=== PATIENT | female | born 1955 | race Caucasian/White ===

== ENCOUNTER 2021-01-30 08:07 | Emergency (ER) | payer BC, SELFPAY ==
--- NOTE | ~2021-01-30 | XR_ITS ---
XR chest 2V DATE: 01/30/2021 08:46 INDICATION: Productive cough, difficulty breathing. Smoker. TECHNIQUE: 2 views COMPARISON: None FINDINGS: Normal heart size. No hilar or mediastinal enlargement. No pulmonary infiltrate or consolid ation, pleural effusion or pulmonary vascular congestion or pneumothorax. Diffuse osteopenia. IMPRESSION: No active cardiopulmonary disease Reviewed, dictated and finalized at location A.
[2021-01-30 08:16] VITALS: BP 144/91; PULSE 95; RESP 16; TEMP 36.6; O2SAT 92
--- NOTE | 2021-01-30 08:44 | ED.GENADULT ---
HPI - General Adult General Chief complaint: Upper Respiratory Infection Stated complaint: congestion Source: patient Mode of arrival: ambulatory Limitations: no limitations History of Present Illness HPI narrative: Patient is a 65-year-old female who presents to the [facility] via POV for evaluation of URI 3 that began 3 days ago. Additionally, she reports bilateral ear pain, nasal congestion, rhinorrhea, semiproductive cough, shortness of breath, and wheezing. She reports her cough is painful. She reports her sputum production is small in quantity and light yellow in color. No relief with Sudafed. Mucinex provides moderate relief although she became concerned after taking an entire box over the course of 3 days prompting today's visit. Activity worsens shortness of breath. Spouse had URI symptoms for 24 hours. She reports she was in the hospital this past week taking care of her spouse who had a knee replacement. She is fully vaccinated against Covid. Related Data Home Medications Medication Instructions Recorded Confirmed clobetasol 0.05 % topical ointment See Rx Instructions .ROUTE .COMPLEX 09/10/20 fluticasone propionate 50 2 spray INTRANASAL DAILY 09/10/20 mcg/actuation nasal spray,suspension triamcinolone acetonide 0.1 % See Rx Instructions .ROUTE .COMPLEX 09/10/20 topical cream Allergies Allergy/AdvReac Type Severity Reaction Status Date / Time BANDAIDS-NOT TAPE Allergy Mild Rash Uncoded 01/30/21 08:34 Review of Systems Review of Systems: Denies history of COPD, bronchitis, asthma, and pneumonia. Denies current/past tobacco use. Pertinent negatives: fever, sweats, chills, change in appetite, fatigue, skin color changes, headache, dizziness, lymphadenopathy, sinus problems, ear drainage, tinnitus, vertigo, chest pain, heart murmurs, heart palpitations, cyanosis, hemoptysis, hoarseness, orthopnea, pleuritic pain, nausea, vomiting, diarrhea, and myalgias. [facility] Past Medical History Medical History Bone spur of foot (~05/2019) Chicken pox HLD (hyperlipidemia) Mumps Rheumatic fever Family History Family History Father , 80 Heart problem Mother No problems noted. Social History Social History Social History: Patient drinks 4 cups of caffeine daily. Smoking packs per day: 0.5 Smoking cigarettes per day: 10.0 Years smoked: 15 Smoking pack-years: 7.50 Smoking status: Current some day smoker Tobacco type: cigarettes Alcohol intake: current Alcohol use details: Patient drinks socially. 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 There is no relevant family history pertinent to the presenting complaint. Exam Narrative: GENERAL: Well-appearing, well-nourished, and in no acute distress. HEAD: Normocephalic, atraumatic. No sinus tenderness or facial swelling appreciated. EYES: PERRLA and EOMI. No evidence of erythema, swelling, or drainage. ENT: Bilateral external ears and ear canals normal. Bilateral TMs are normal.No TM perforation. Nares clear, no rhinorrhea or epistaxis. Bilateral turbinates without erythema/ swelling. Mucous membranes moist and pink. Uvula is midline without erythema and swelling. No evidence of petechial rash, cobblestoning, lesions, ulcers, erythema, swelling, exudates, peritonsillar abscess, tenting, or drooling. Breath odor and voice normal. NECK: Supple. No Lymphadenopathy or nuchal rigidity appreciated. CHEST: Bilateral posterior upper lung damian are diminished. Mild inspiratory wheeze noted to right posterior upper lung field. [place]
[2021-01-30] MEDS: IPRATROPIUM BR 0.02% INH SOLN 0.5 MG/2.5 ML VIAL INHALATION (09:03)
[2021-01-30] MEDS: ALBUTEROL SULFATE NEB 2.5 MG/3 ML INH INHALATION (09:03)
== END 2021-01-30 09:30 | disposition home or self-care (01) ==
PROVIDERS: Emergency Provider Nurse Practitioner Family; PCP Emergency Medicine
DX: J40 Bronchitis, not specified as acute or chronic (principal); F17.210 Nicotine dependence, cigarettes, uncomplicated; E78.5 Hyperlipidemia, unspecified
CPT/HCPCS: 71046; 94640; 99213; G0463

== ENCOUNTER → 2021-02-01 02:54 | Outpatient (CLI) | payer SELFPAY ==
[2021-02-01 16:22] LABS: SARS-CoV-2 RNA PCR Negative
== END ==
PROVIDERS: PCP Emergency Medicine; Visit Provider Emergency Medicine
DX: Z20.822 Contact with and (suspected) exposure to COVID-19 (principal); R05.9 Cough, unspecified; R09.81 Nasal congestion; R09.89 Other specified symptoms and signs involving the circulatory and respiratory systems
CPT/HCPCS: C9803; U0003; U0005

== ENCOUNTER → 2021-02-16 15:58 | Outpatient (CLI) | payer BC, SELFPAY ==
--- NOTE | ~2021-02-16 | XR_ITS ---
EXAMINATION: XR lumbar spine 2-3V DATE: 02/16/2021 16:15 INDICATION: Lumbar radiculopathy. TECHNIQUE: 3 views of lumbar spine were obtained. COMPARISON: CT abdomen and pelvis 11/27/2015 FINDINGS: There is 4 degrees dextrocurvature of lumbar spine. There are chronic bilateral L5 pars def ects. There is 6 mm anterolisthesis of L5 on S1. There is mild chronic height loss of L5 vertebral matty dy posteriorly. There is moderately decreased disc height at L5-S1. There is multilevel mild facet jaylene int osteoarthritis. IMPRESSION: 1. Chronic bilateral L5 pars defects with grade 1 anterolisthesis of L5 on S1. 2. Moderate lower lumbar spondylosis. Reviewed, dictated and finalized at location A.
== END ==
PROVIDERS: PCP Emergency Medicine; Visit Provider Emergency Medicine
DX: M47.27 Other spondylosis with radiculopathy, lumbosacral region (principal)
CPT/HCPCS: 72100

== ENCOUNTER → 2021-05-19 12:00 | Outpatient (CLI) | payer BC, SELFPAY ==
--- NOTE | ~2021-05-19 | DEXA_ITS ---
Bone Density Report Name: TABITHA LOOMIS Age: 65 Sex: Female Ethnicity: White Date of : 1955 Indication: postmenopausal; screening for osteoporosis; Referring Provider: MAGALY ACEVES Study: Bone densitometry was performed. Exam Date: May 19, 2021 Accession number: [id number] Bone Density: Region BMD T-score Z-score Classification AP Spine (L1-L4) 0.752 -2.7 -1.0 Osteoporosis Femoral Neck (Left) 0.685 -1.5 0.0 Osteopenia Total Hip (Left) 0.811 -1.1 0.1 Osteopenia Femoral Neck (Right) 0.691 -1.4 0.0 Osteopenia Total Hip (Right) 0.825 -1.0 0.2 Normal Total Hip Mean 0.818 -1.1 0.2 Osteopenia World Health Organization criteria for BMD impression classify patients as: Normal (T-score at or above -1.0), Osteopenia (T-score between -1.0 and -2.5), or Osteoporosis (T-score at or below -2.5). 10-year Fracture Risk: FRAX not reported because: Some T-score for Spine Total or Hip Total or Femoral Neck at or below -2.5 Clinical Information Provided by Patient: Smokes Patient maximum height was 66 Menopause Age: 52 Drinks caffeinated beverages Onset of menses at age 15 Number of children 2 Impression: The patient has osteoporosis, based on the Total Spine T-score. The patient has risk factors, including: smoking. Discussion: INCREASED RISK OF FRACTURE. BONE DENSITY IS UNDESIRABLY LOW AT ONE OR MORE SKELETAL SITES, CONSISTENT WITH POSTMENOPAUSAL OSTEOPOROSIS. This patient's lowest T-score meets the World Health Organization's (WHO) criteria for osteoporosis at one or more sites (T-score -2.5 or below). In untreated patients, the risk of osteoporotic fracture increases approximately two-fold for each 1.0 SD decrease in T-score. Low bone density is not the only risk factor for fracture; also consider factors such as patient's age, frailty or poor health, risk of falling, risk of injury, previous osteoporotic fracture, family history of osteoporosis, cigarette smoking, low body weight, etc. Not everyone with low bone mineral density has osteoporosis; osteomalacia and other metabolic bone disorders should also be considered. Patients who have osteoporosis should be evaluated for specific diseases and conditions (secondary causes) that may cause or contribute to bone loss. The [place] Association of Clinical Endocrinologists (AACE) and National Osteoporosis Foundation (NOF) recommend pharmacologic intervention for all postmenopausal women whose T-score is in this range. The patient should follow a healthful lifestyle (good nutrition with adequate calcium and vitamin D, and appropriate weight-bearing exercise). Follow-Up: Consider a repeat BMD and Vertebral Fracture Assessment (VFA) exam in 2 years or sooner if medically necessary, to reassess this patient's status. Reported by: [facility] on 05/19/2021 12
--- NOTE | ~2021-05-19 | MM_ITS ---
EXAMINATION: MM screening sadiq BI w phil HISTORY: Screening mammogram, family history of breast cancer in her mother. TECHNIQUE: Craniocaudal and mediolateral oblique 3-D tomosynthesis images were obtained and synthetic 2-D images were generated. CAD analysis was submitted and interpreted. COMPARISON: 04/05/2019, 11/25/2018, 09/03/2007, 02/25/2007 BREAST PARENCHYMAL COMPOSITION: There are scattered areas of fibroglandular density. FINDINGS: Stable masses of the breasts are consistent with benign findings. There is no evidence of s uspicious mass, calcification, or architectural distortion to suggest malignancy in either breast. Th ere has been no suspicious interval change. IMPRESSION: 1. No mammographic evidence of malignancy. 2. Recommend routine screening mammography in one year. BI-RADS Category 2: Benign finding(s). Reviewed, dictated and finalized at location A. ER HIDES
== END ==
PROVIDERS: Visit Provider Emergency Medicine
DX: Z12.31 Encounter for screening mammogram for malignant neoplasm of breast (principal); Z78.0 Asymptomatic menopausal state; M81.0 Age-related osteoporosis without current pathological fracture; M85.89 Other specified disorders of bone density and structure, multiple sites
CPT/HCPCS: 77063; 77067; 77080

== ENCOUNTER → 2022-10-11 15:52 | Outpatient (CLI) | payer BC, SELFPAY ==
--- NOTE | ~2022-10-11 | MM_ITS ---
EXAMINATION: MM screening sadiq BI w phil HISTORY: Screening mammogram TECHNIQUE: Craniocaudal and mediolateral oblique 3-D tomosynthesis images were obtained and synthetic 2-D images were generated. CAD analysis was submitted and interpreted. COMPARISON: 05/19/2021 bilateral screening mammogram BREAST PARENCHYMAL COMPOSITION: The breasts are heterogeneously dense, which may obscure small masses . FINDINGS: Scattered bilateral benign calcifications. There is no evidence of suspicious mass, calcifi cation, or architectural distortion to suggest malignancy in either breast. There has been no suspici ous interval change. IMPRESSION: 1. No mammographic evidence of malignancy. 2. Recommend routine screening mammography in one year. BI-RADS Category 2: Benign finding(s). Reviewed, dictated and finalized at location A.
== END ==
PROVIDERS: PCP Emergency Medicine; Visit Provider Emergency Medicine
DX: Z12.31 Encounter for screening mammogram for malignant neoplasm of breast (principal)
CPT/HCPCS: 77063; 77067

== ENCOUNTER 2023-05-03 00:56 | Day surgery (SDC) | payer BC, SELFPAY ==
[2023-04-05 14:32] VITALS: BMI 30.6
--- NOTE | 2023-05-01 09:57 | SUR.PREOP ---
Patient called regarding upcoming procedure. Reviewed preop instructions, appointment times, and procedure prep.
[2023-05-03 06:20] VITALS: BP 138/82; PULSE 86; RESP 20; TEMP 36.2; O2SAT 97; BMI 31.1
[2023-05-03] MEDS: LACTATED RINGERS 1,000 ML 150 ML IV CONT (06:24)
--- NOTE | 2023-05-03 07:24 | WPDANESEPPF ---
Anes - Initial Pre Proc Eval Procedure: Operation Date: 05/03/23 07:30 Proposed Procedures p Colonoscopy - Aki Gonzalez MD Date/Time: 05/03/23 07:24 Surgeon: Aki Gonzalez MD Pre Op Diagnosis: hx of colon polyps Patient Data Age: 67 Gender: F Height: 1.68 m Weight: 87.6 kg Last Vital Signs Temp 97.1 F L 05/03/23 06:20 Pulse 86 05/03/23 06:20 Resp 20 05/03/23 06:20 BP 138/82 05/03/23 06:20 Pulse Ox 97 05/03/23 06:20 O2 Del Method Room Air 05/03/23 06:20 Allergies Allergy/AdvReac Type Severity Reaction Status Date / Time BANDAIDS-NOT TAPE Allergy Mild Rash Uncoded 05/03/23 06:18 Home Medications Medication Instructions Recorded Confirmed Type clobetasol 0.05 % topical ointment See Rx Instructions .Route 08/02/21 04/05/23 Rx .COMPLEX #60 grams triamcinolone acetonide 0.1 % See Rx Instructions .Route 08/02/21 04/05/23 Rx topical cream .COMPLEX #454 grams alendronate 70 mg tablet See Rx Instructions .Route 10/10/22 04/05/23 Rx .COMPLEX #12 tabs ezetimibe 10 mg tablet See Rx Instructions .Route 10/10/22 04/05/23 Rx .COMPLEX #90 tabs omeprazole 20 mg capsule,delayed See Rx Instructions .Route 10/10/22 04/05/23 Rx release .COMPLEX #90 caps rosuvastatin 40 mg tablet See Rx Instructions .Route 10/10/22 04/05/23 Rx .COMPLEX #90 tabs fluticasone propionate 50 2 spray intranasal DAILY #48 grams 02/13/23 04/05/23 Rx mcg/actuation nasal spray,suspension (Flonase Allergy Relief) Patient hx anesthesia problems: none Family hx anesthesia problems: none Results Review: All pre-operative results and documents have been reviewed as part of the pre-operative evaluation. [facility] Past Medical History Medical History Bone spur of foot (~05/2019) Chicken pox HLD (hyperlipidemia) Mumps Rheumatic fever Sinusitis Family History Family History Father , 80 Heart problem Mother No problems noted. Social History Social History Social History: Patient drinks 4 cups of caffeine daily. Smoking packs per day: 0.5 Smoking cigarettes per day: 10.0 Years smoked: 50 Smoking pack-years: 25.00 Smoking status: Current every day smoker Tobacco type: cigarettes Alcohol intake: current Alcohol use details: Patient drinks socially. 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 Informed Consent: The patient's anesthetic plan and its attendant risks and benefits were discussed with the patient/family/POA. Questions were solicited and answers provided to the satisfaction of the patient/family/POA.
--- NOTE | 2023-05-03 07:25 | PM.HPGS ---
History of Present Illness History of Present Illness Consent: Risks, benefits, and alternatives have been discussed and questions answered. Patient agrees to proceed with procedure. Chief complaint: colon screening Narrative: Claire Goodwin is a 67 year old female here for screening colonoscopy, last one more than 10 years ago Review of Systems Constitutional: Constitutional: Denies headache(s) and Denies weakness Eyes: Eyes: Denies blurry vision ENT: Reports Normal hearing present, Denies headache(s) and Denies neck pain Cardiovascular: Cardiovascular: Denies chest pain and Denies dyspnea Respiratory: Respiratory: Denies dyspnea Gastrointestinal: Gastrointestinal: Reports no additional gastrointestinal complaints Genitourinary: Genitourinary: Denies dysuria Musculoskeletal: Musculoskeletal: Denies neck pain Integumentary/Breasts: Skin/Breast: Denies dry skin Neurologic: Reports Normal hearing present, Denies headache(s) and Denies weakness Psychiatric: Psychiatric: Denies anxiety Endocrine: Endocrine: Denies change in body appearance Hematologic/Lymphatic: Hematologic/Lymphatic: Denies easy bleeding Allergic/Immunologic: Allergic/Immunologic: Denies urticaria PMFSH Past Medical History Medical History (Updated 05/03/23 @ 07:25 by Aki Gonzalez MD) Bone spur of foot (~05/2019) Chicken pox Colon cancer screening HLD (hyperlipidemia) Mumps Rheumatic fever Sinusitis Family History Family History Father , 80 Heart problem Mother No problems noted. Social History Social History Social History: Patient drinks 4 cups of caffeine daily. Smoking packs per day: 0.5 Smoking cigarettes per day: 10.0 Years smoked: 50 Smoking pack-years: 25.00 Smoking status: Current every day smoker Tobacco type: cigarettes Alcohol intake: current Alcohol use details: Patient drinks socially. 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 Spiritual care concerns: No Meds Home Medications and Allergies Home Medications Medication Instructions Recorded Confirmed Type clobetasol 0.05 % topical ointment See Rx Instructions .Route 08/02/21 04/05/23 Rx .COMPLEX #60 grams triamcinolone acetonide 0.1 % See Rx Instructions .Route 08/02/21 04/05/23 Rx topical cream .COMPLEX #454 grams alendronate 70 mg tablet See Rx Instructions .Route 10/10/22 04/05/23 Rx .COMPLEX #12 tabs ezetimibe 10 mg tablet See Rx Instructions .Route 10/10/22 04/05/23 Rx .COMPLEX #90 tabs omeprazole 20 mg capsule,delayed See Rx Instructions .Route 10/10/22 04/05/23 Rx release .COMPLEX #90 caps rosuvastatin 40 mg tablet See Rx Instructions .Route 10/10/22 04/05/23 Rx .COMPLEX #90 tabs fluticasone propionate 50 2 spray intranasal DAILY #48 grams 02/13/23 04/05/23 Rx mcg/actuation nasal spray,suspension (Flonase Allergy Relief) Allergies Allergy/AdvReac Type Severity Reaction Status Date / Time BANDAIDS-NOT TAPE Allergy Mild Rash Uncoded 05/03/23 06:18 Vital Signs Vital Signs - 24 hr 05/03/23 06:20 Temperature 97.1 F L Pulse Rate 86 Respiratory Rate 20 Blood Pressure 138/82 Pulse Oximetry 97 Oxygen Delivery Room Air Exam Const: General: comfortable and no acute distress HENMT: Face/Nose/Sinus: Normal nares present Eyes: General: appearance normal, bot
[2023-05-03 07:45] VITALS: BP 101/68; PULSE 72; RESP 24; O2SAT 97
[2023-05-03 07:55] VITALS: BP 119/81; PULSE 72; RESP 24; O2SAT 100
[2023-05-03 08:05] VITALS: BP 135/83; PULSE 69; RESP 21; O2SAT 99
== END 2023-05-03 08:14 | disposition home or self-care (01) ==
PROVIDERS: PCP Emergency Medicine; Visit Provider Internal Medicine Gastroenterology
PROC: 0DJD8ZZ Inspection of Lower Intestinal Tract, Via Natural or Artificial Opening Endoscopic (ICD-10-PCS; CPT 45378; principal; 2023-05-03 07:30)
DX: Z12.11 Encounter for screening for malignant neoplasm of colon (principal); K62.1 Rectal polyp; K57.30 Diverticulosis of large intestine without perforation or abscess without bleeding; E78.5 Hyperlipidemia, unspecified; F17.210 Nicotine dependence, cigarettes, uncomplicated; E66.9 Obesity, unspecified; Z68.31 Body mass index [BMI] 31.0-31.9, adult; Z82.49 Family history of ischemic heart disease and other diseases of the circulatory system
CPT/HCPCS: 45385; 88305; J2704; J7120

== ENCOUNTER 2023-08-24 10:50 | Outpatient (CLI) | payer BC, SELFPAY ==
--- NOTE | ~2023-08-24 | XR_ITS ---
Right Knee Technique: AP and lateral views were obtained. Clinical History: Pain Findings: No fracture or dislocation is seen. Osseous alignment is anatomic. Joint spaces are preserv ed without degenerative or erosive change. Soft tissues are unremarkable. No joint effusion is seen. Impression: Unremarkable right knee radiographs. Reviewed, dictated and finalized at location . Impression: Unremarkable right knee radiographs.
== END 2023-08-24 10:51 ==
PROVIDERS: PCP Emergency Medicine; Visit Provider Emergency Medicine
DX: M25.561 Pain in right knee (principal)
CPT/HCPCS: 73560

== ENCOUNTER 2023-09-13 09:13 | Outpatient (CLI) | payer BC, SELFPAY ==
--- NOTE | ~2023-09-13 | US_ITS ---
EXAMINATION: US arterial ankle brachial ind DATE: 09/13/2023 09:55 INDICATION: Peripheral vascular disease, unspecified. TECHNIQUE: Segmental pressures and plethysmographic and Doppler waveforms of the brachial and lower e xtremity arteries were obtained. COMPARISON: None. FINDINGS: Right and left brachial artery pressures of 133 mm Hg and 131 mm Hg, respectively, are concordant (no rmal difference <= 30 mmHg). The right ankle-brachial index (EMMIE) is 0.54 (normal >= 0.9-1.0). The right great toe-brachial index (TBI) is 0.25 (normal >= 0.65). Arterial Doppler waveforms are biphasic at the ankle. The left EMMIE is 0.96. The left TBI is 0.54. Arterial Doppler waveforms are biphasic at the ankle. IMPRESSION: 1. Moderately decreased right EMMIE and mildly decreased left EMMIE, consistent with arterial occlusive d isease. Reviewed, dictated and finalized at location A. IMPRESSION: 1. Moderately decreased right EMMIE and mildly decreased left EMMIE, consistent wit h arterial occlusive disease.
== END 2023-09-13 09:14 | disposition home or self-care (01) ==
PROVIDERS: PCP Emergency Medicine; Visit Provider Emergency Medicine
DX: I73.9 Peripheral vascular disease, unspecified (principal)
CPT/HCPCS: 93922

== ENCOUNTER 2024-01-16 10:47 | Outpatient (CLI) | payer BC, SELFPAY ==
--- NOTE | ~2024-01-16 | DEXA_ITS ---
Bone Density Report Name: TABITHA LOOMIS Age: 68 Sex: Female Ethnicity: White Date of : 1955 Indication: postmenopausal; screening for osteoporosis; Referring Provider: MAGALY ACEVES Study: Bone densitometry was performed. Exam Date: January 16, 2024 Accession number: [id number] Bone Density: Region BMD T-score Z-score Classification AP Spine(L1-L4) 0.825 -2.0 -0.2 Osteopenia Femoral Neck (Left) 0.663 -1.7 -0.1 Osteopenia Total Hip (Left) 0.847 -0.8 0.5 Normal Femoral Neck (Right) 0.678 -1.5 0.1 Osteopenia Total Hip (Right) 0.877 -0.5 0.8 Normal Total Hip Mean 0.862 -0.7 0.7 Normal World Health Organization criteria for BMD impression classify patients as: Normal (T-score at or above -1.0), Osteopenia (T-score between -1.0 and -2.5), or Osteoporosis (T-score at or below -2.5). 10-year Fracture Risk(1): Major Osteoporotic Fracture 9.2% Hip Fracture 1.1% Reported Risk Factors: [place] (), Neck BMD=0.663, BMI=31.2 (1) FRAX(R) Version 3.08. Fracture probability calculated for an untreated patient. Fracture probability may be lower if the patient has received treatment. Clinical Information Provided by Patient: Has used the following medications: Fosamax (i.e. alendronate) Patient maximum height was 66 No regular weight bearing exercise Drinks caffeinated beverages Onset of menses at age 15 Number of children 2 Impression: The patient has low bone mass, based on the Total Spine T-score. The patient has an estimated ten-year risk of hip fracture of 1.1% and an estimated ten-year risk of major fracture of 9.2%, based on the WHO FRAX algorithm. Discussion: BONE DENSITY IS LOW AT ONE OR MORE SKELETAL SITES. This patient's lowest T-score is low at one or more skeletal sites. It meets the World Health Organization's (WHO) criteria for ?low bone mass? (T-score between -1.0 and -2.5). The patient's 10-year risk of fracture as calculated by FRAX is less than the threshold where pharmacological therapy is recommended by the National Osteoporosis Foundation (NOF). However, all treatment decisions require clinical judgment and consideration of individual patient factors, including patient preferences, comorbidities, previous drug use, risk factors not captured in the FRAX model (e.g., frailty, falls, vitamin D deficiency, increased bone turnover, interval significant decline in bone density) and possible under or overestimation of fracture risk by FRAX. The patient should follow a healthful lifestyle (good nutrition with adequate calcium and vitamin D, and appropriate weight-bearing exercise). Follow-Up: Consider repeating this study in 2 to 3 years to reassess this patient's status, or sooner if there is some new clinical indication. Reported by: ADONIS on 01/16/2024
== END 2024-01-16 10:48 | disposition home or self-care (01) ==
LOC: ANHIMG 10:52
PROVIDERS: PCP Emergency Medicine; Visit Provider Emergency Medicine
DX: M85.89 Other specified disorders of bone density and structure, multiple sites (principal); E55.9 Vitamin D deficiency, unspecified; Z78.0 Asymptomatic menopausal state; Z13.820 Encounter for screening for osteoporosis
CPT/HCPCS: 77080

== ENCOUNTER 2024-01-23 11:26 | Outpatient (CLI) | payer BC, SELFPAY ==
--- NOTE | ~2024-01-23 | MM_ITS ---
EXAMINATION: MM screening sadiq BI w phil HISTORY: Screening TECHNIQUE: Craniocaudal and mediolateral oblique 3-D tomosynthesis images were obtained and synthetic 2-D images were generated. CAD analysis was submitted and interpreted. COMPARISON: Comparison to multiple prior studies sequentially, with oldest reviewed study dated 05/19. BREAST PARENCHYMAL COMPOSITION: Dense: The breasts are heterogeneously dense, which may obscure small masses FINDINGS: There is no evidence of suspicious mass, calcification, or architectural distortion to sugg est malignancy in either breast. There has been no suspicious interval change. IMPRESSION: 1. No mammographic evidence of malignancy. 2. Recommend routine screening mammography in one year. BI-RADS Category 1: Negative Reviewed, dictated and finalized at location B.
== END 2024-01-23 11:27 | disposition home or self-care (01) ==
LOC: MICIMG 11:27
PROVIDERS: PCP Emergency Medicine; Visit Provider Emergency Medicine
DX: Z12.31 Encounter for screening mammogram for malignant neoplasm of breast (principal)
CPT/HCPCS: 77063; 77067

== ENCOUNTER 2025-03-12 14:25 | Outpatient (CLI) | payer BC, SELFPAY ==
--- NOTE | ~2025-03-12 | MM_ITS ---
EXAMINATION: MM screening sadiq BI w phil HISTORY: Screening TECHNIQUE: Craniocaudal and mediolateral oblique 3-D tomosynthesis images were obtained and synthetic 2-D images were generated. CAD analysis was submitted and interpreted. COMPARISON: Comparison to multiple prior studies sequentially, with oldest reviewed study dated 05/19/2021. BREAST PARENCHYMAL COMPOSITION: Dense: The breasts are heterogeneously dense, which may obscure small masses FINDINGS: There is no evidence of suspicious mass, calcification, or architectural distortion to suggest malignancy in either breast. There has been no suspicious interval change. IMPRESSION: 1. No mammographic evidence of malignancy. 2. Recommend routine screening mammography in one year. BI-RADS Category 1: Negative Reviewed, dictated and finalized at location O. [facility]
--- OUTSIDE RECORDS SUMMARY | 2025-03-12 17:30 | XMS_ITS | Clinical Summary ---
Author Organization [facility] at the [facility] Office Center Address [address] [place] [address] Care Team Providers Care Stripper And Opaquer Apprentice Name Role Phone Roosevelt Bergman MD Primary Care Provide r Allergies No known active allergies Medications rosuvastatin (CRESTOR) 40 mg tablet Take 1 tablet (40 mg total) by mouth daily Active ezetimibe (ZETIA) 10 mg tablet Take 1 tablet (10 mg total) by mouth daily Active omeprazole 20 mg tablet,delayed release (DR/EC) Take by mouth Active alendronate (FOSAMAX) 70 mg tablet Active cholecalciferol 400 unit capsule Act srini Active Problems Problem Noted Date Diagnosed Date Other hyperlipidemia 10/17/2023 Assessment & Plan (10/17/2023 1:05 PM CDT): Impression: Chronic and stable. 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 Follow up in 6 months for lower extremity arterial Doppler. Continue aspirin and Zetia and risk factor modifications. Assessment & Plan (10/17/2023 1:08 PM CDT): Impression: Patient complains of right calf claudication after walking half a mile. She denies claudication is life-limiting. She denies any ischemic rest pain or ulcerations to her lower extremity. Biphasic waveforms at the right posterior tibial level is noted on lower extremity arterial Doppler. With an EMMIE of 0.57. Plan: Discussed with the patient as symptoms of claudication are non life- limiting, we will continue to monitor. -patient to follow-up in 6 months for re-evaluation with a lower extremity arterial Doppler. Encouraged patient to make a sooner appointment if symptoms claudication worsens. Tobacco abuse 10/17/2023 Assessment & Plan (04/30/2024 10:18 AM RIVET TESTER): Patient with history of tobacco abuse who is a current everyday 10-15 cigarette per day smoker. I had a greater than 3 minute discussion with the patient on the importance of smoking cessation and the negative affects on their cardiovascular health. Patient understands importance of cessation. Assessment & Plan (10/17/2023 1:12 PM CDT): Impression: Patient is current everyday smoker smoking approximately 10-15 cigarettes daily. Plan: Discussed with the patient greater than 3 minutes about the importance of smoking cessation and benefits to the cardiovascular system. Defer to primary care provider for further management. Social History Tobacco Use Types Packs/Day Years Used Date Smoking Tobacco: Never Assessed Comments Unknown Sex and Gender Information Value Date Recorded Sex Assigned at Not on file Legal Sex Female 3:23 PM CDT Gender Identity Not on file Sexual Orientation Not on file Last Filed Vital Signs Vital Sign Reading Time Taken Comments Blood Pressure 143/85 11/05/2024 9:39 AM CDT Pulse 77 11/05/2024 9:39 AM CDT Temperature - - Respiratory Rate - - Oxygen Saturation 96% 11/05/2024 9:39 AM CDT Inhaled Oxygen Concentration - - Weight 86.2 kg (190 lb) 11/05/2024 9:39 AM CDT Height 167.6 cm (5' 6) 11/05/2024 9:39 AM CDT Body Mass Index 30.67 11/05/2024 9:39 AM CDT Plan of Treatment Health Maintenance Due Date Last Done Comments Breast Cancer Screening-Mammogram 1957 Colon Cancer Screening-Colonoscopy 1957 Depression Screening 1957 Fall Risk Assessment 1957 Hepatitis C Screening 1957 Osteoporosis Screening-Bone Density Scan 1957 DTaP/Tdap/Td Vaccine (1 - Tdap) 1968 Hepatitis B Screening 06/30/1975 Pneumococcal vaccine 65+ (1 of 1 - PCV) 06/30/2007 Well Visit 65+ 2022 Covid-19 Vaccine (3 - 2024- season) 12/22/202405/2020, 06/25/2020 Influenza Vaccine (#1) 2024 02/17/2022 Zoster Vaccine Completed 07/01/2022, 02/17/2022 Insurance [employer] OOS Care Teams Stripper And Opaquer Apprentice Relationship Specialty Start Date End Date Roosevelt Bergman MD [address] [place] [address] PCP - General Emergency Medicine 09/25/23
--- OUTSIDE RECORDS SUMMARY | 2025-03-12 17:30 | XMS_ITS | Encounter Summary ---
Author Organization [facility] Address 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
--- OUTSIDE RECORDS SUMMARY | 2025-03-12 17:30 | XMS_ITS | Encounter Summary ---
Author Organization [facility] Address 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
--- OUTSIDE RECORDS SUMMARY | 2025-03-12 17:30 | XMS_ITS | Clinical Summary ---
Author Organization [facility] Address 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 Gender Identity Not on file Sexual Orientation Not on file Plan of Treatment Health Maintenance Due Date Last Done Comments DTAP/TDAP/TD VACCINES (1 - Tdap) 1976 BREAST CANCER SCREENING 1997 COLORECTAL SCREENING 2002 Colorectal Cancer Screening 2002 FIT-DNA Q 3 years 2002 FIT/FOBT Q 1 year 2002 Flex Sig/CT Colonography Q 5 years 2002 PNEUMOCOCCAL VACCINE 50+ YEARS (1 of 1 - PCV) 06/30/19 08 ZOSTER VACCINE (1 of 2) 06/30/2007 OSTEOPOROSIS SCREENING 2022 INFLUENZA VACCINE (#1) 2024 RSV VACCINE (60+ or ) (1 - 1-dose 75+ series) 2032 Care Teams Junior Linux Systems Administrator Relationship Specialty Start Date End Date Tank Carrillo MD [address] [place] [id number] PCP - General 08/02/06
--- OUTSIDE RECORDS SUMMARY | 2025-03-12 17:30 | XMS_ITS | Encounter Summary ---
Author Organization [facility] Address [address] [place] [address] Care Team Providers Care Manager Client Name Role Phone Tank Carrillo MD Primary Care Provider Encounter Details Date Type Department Care Team (Late st Contact Info) Description 09/04/2000 Outpatient Historical [facility] Primary Care - [address] [place] [address] Phong Leblanc MD [address] [facility] [address] [id number] Social History Tobacco Use Types Packs/Day Years Used Date Smoking Tobacco: Never Assessed Comments Unknown Sex and Gender Information Value Date Recorded Sex Assigned at Not on file Legal Sex Female 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
== END 2025-03-12 14:26 | disposition home or self-care (01) ==
LOC: ANHFOHIMG 14:25
PROVIDERS: PCP Emergency Medicine; Visit Provider Emergency Medicine
DX: Z12.31 Encounter for screening mammogram for malignant neoplasm of breast (principal)
CPT/HCPCS: 77063; 77067